=== PATIENT | male | born 1985 | race Caucasian/White ===

== ENCOUNTER → 2017-06-19 | Outpatient (CLI) | payer OTHER ==
--- NOTE | 2017-06-19 10:26 | DIAGNOSTIC IMAGING REPORT ---
ABDOMEN FOR HERNIA HISTORY: 32 years-old Male R10.32 Abdominal pain, left lower [id number] acute left groin pain with concern for hernia COMPARISON: None available TECHNIQUE: Multiple real-time sonographic images of the left inguinal region soft tissues were obtained assessing grayscale appearance. FINDINGS/IMPRESSION: Within the area of concern within the left inguinal region there is a small to moderate sized fat containing reducible inguinal hernia. No definite loops of bowel are seen extending into the hernia site. The above report was generated using voice recognition software. It may contain grammatical, syntax or spelling errors. Electronically signed by: Braulio Norman M.D. 06/19/2017 10:25 AM Dictated Date/Time: 06/19/2017 10:22 AM
== END | disposition home or self-care (01) ==
LOC: C.ULTRBC 09:59
PROVIDERS: ATTEND Family Medicine Adult Medicine
DX: R10.32 Left lower quadrant pain (principal); K40.90 Unilateral inguinal hernia, without obstruction or gangrene, not specified as recurrent